=== PATIENT | female | born 2000 | race Caucasian/White ===

== ENCOUNTER 2021-10-13 09:38 | Day surgery (SDC) | payer OTHER ==
[~2021-10-13] VITALS: Ht 157.5 cm; Wt 51.3 kg
[~2021-10-13 09:38] MED LIST: CLINDAMYCIN 900 MG in IV 1 EA IV ONE; PROAAER10 INH; dexameTHASONE 4 MG/ML 1ML VIAL (J1100 PER 1MG) IV ONE
[2021-10-13] MEDS ORDERED: LR 1,000 ML IV SCH ×2 (09:45→13:10)
[2021-10-13] MEDS ORDERED: MIDAZOLAM INJ 2MG/2ML VIAL (J2250 PER 1MG) As Ordered ONE (11:08)
[2021-10-13] MEDS ORDERED: fentaNYL 250 MCG/5 ML INJECTION As Ordered ONE (11:08)
[2021-10-13] MEDS ORDERED: LIDOCAINE 2% 100MG/5ML SDV (FOR ANES.) As Ordered ONE (11:09)
[2021-10-13] MEDS ORDERED: ROCURONIUM BROMIDE 50 MG/5 ML VIAL As Ordered ONE (11:09)
[2021-10-13] MEDS ORDERED: ONDANSETRON 4MG 2ML VIAL As Ordered ONE (11:09)
[2021-10-13] MEDS ORDERED: propofoL 200 MG/20 ML VIAL As Ordered ONE (11:09)
[2021-10-13] MEDS ORDERED: METOCLOPRAMIDE INJ 10MG/2ML VIAL (J2765 PER 1) As Ordered ONE (11:09)
[2021-10-13] MEDS ORDERED: dexameTHASONE 4 MG/ML 1ML VIAL (J1100 PER 1MG) As Ordered ONE (11:09)
[2021-10-13] MEDS ORDERED: CHLORHEXIDINE GLUCONATE 0.12 % 15ML UDC (PERIDEX ORAL RINSE) As Ordered ONE (11:15)
[2021-10-13] MEDS ORDERED: LIDOCAINE 2% W/ EPINEPHRINE 1.7 ML DENTAL INJ As Ordered ONE (11:15)
[2021-10-13] MEDS ORDERED: BUPIVACAINE LIPOSOME/PF 1.3% 20ML VIAL (13.3MG/ML)(EXPAREL) As Ordered ONE (11:15)
[2021-10-13] MEDS ORDERED: ACETAMINOPHEN 1000MG 100ML IV BTL (OFIRMEV) (J0131 PER 10MG) As Ordered ONE (12:11)
[2021-10-13] MEDS ORDERED: LIDOCAINE 2% JELLY 5ML TUBE As Ordered ONE (12:12)
[2021-10-13] MEDS ORDERED: ePHEDrine SULFATE 25 MG/5 ML(5MG/ML) SYRINGE As Ordered ONE (12:46)
[2021-10-13] MEDS ORDERED: SUGAMMADEX SODIUM 500 MG/5 ML VIAL (BRIDION) As Ordered ONE (12:51)
[2021-10-13] MEDS ORDERED: oxyCODONE 5MG TAB PO PRN (13:10)
[2021-10-13] MEDS ORDERED: ONDANSETRON 4MG 2ML VIAL IV PRN (13:10)
[2021-10-13] MEDS ORDERED: fentaNYL 100 MCG/2 ML INJECTION IV PRN (13:10)
[2021-10-13 14:50] VITALS: BP 111/63
== END 2021-10-13 15:04 | disposition home or self-care (01) ==
LOC: M SDC 09:38
PROVIDERS: ATTEND Dentist
DX: K02.9 Dental caries, unspecified (principal); F40.232 Fear of other medical care; F41.1 Generalized anxiety disorder; J45.909 Unspecified asthma, uncomplicated; F17.210 Nicotine dependence, cigarettes, uncomplicated; Z79.899 Other long term (current) drug therapy
CPT/HCPCS: 81025; 88300; D7140; D7210; D9223; J0131; J1100; J2250; J2405; J2765; J3010